=== PATIENT | male | born 1980 | race Caucasian/White ===

== ENCOUNTER 2018-08-26 18:16 | Inpatient (IN) ==
[2018-08-26] MEDS ORDERED: ONDANSETRON 4 MG/2 ML VIAL IVP ONE (18:26)
[2018-08-26] MEDS ORDERED: LORazepam 2 MG/1 ML VIAL IVP ONE (18:26)
[2018-08-26] MEDS ORDERED: Sodium Chloride 0.9% 1,000 ML PRIMARY IV ONE (18:26)
[2018-08-26] MEDS ORDERED: Sodium Chloride 0.9% 1,000 ML, Magnesium Sulfate 2gm (Premix) 50 ML with Multivitamin I... IV ONE ×5 (18:32)
--- NOTE | 2018-08-26 18:32 | PDOC ---
Alcohol/Drug Abuse HPI - General Chief Complaint: Drug / Alcohol Use &/or Abuse Stated Complaint: THINKS HE IS GOING THROUGH DTS Date Seen by Provider: 08/26/18 Time Seen by Provider: 18:24 Source: POSITIVE: Patient, Police Exam Limitations: POSITIVE: No limitations Nurse's Notes Reviewed & Considered: Yes - History of Present Illness Initial Comments: This is a well-developed, well-nourished, 38-year-old male, complaining of alcohol withdrawal. This patient is sweaty, tremulous, nauseous, with tachycardia and elevated blood pressure. His last drink was last night at approximately 11 PM. He was arrested early this morning and taken to [facility] and his had no alcohol since. Patient states he drinks every day and has done so for approximately 2 years. He states his drink preferences vodka of which he drinks a fifth a day. Presently he denies any headache, no sore throat, he does have chest pain that he calls pressure that is nonradiating with associated shortness of breath. He does have nausea and vomiting but no diarrhea, he is sweaty and no rashes. Timing: REPORTS: Gradual Duration: <24 hours Severity: Severe Context: REPORTS: Agitated, Tremors, Chronic ETOH Dependence Situational Problems: REPORTS: Legal Problems, Other (Patient presently was arrested and in [facility]) Similar Symptoms Previously: No Recent Care Received: REPORTS: Denies Currently Enrolled in Methadone Program: No Associated Symptoms: REPORTS: Chills, Sweating, Rapid Pulse, Nausea, Vomitting, Restlessness, Irritability Any Prior Injuries Related to Current Complaint?: No - Patient Home Medications Home Medications: Home Medications NK 08/26/18 - Patient Allergies Allergies/Adverse Reactions: Allergies 3 Allergy/AdvReac Type Severity Reaction Status Date / Time bismuth subsalicylate Allergy VOMITING Verified 08/26/18 18:17 [From Pepto-Bismol] Past Medical History - heen HEENT History: Denies History Cardiovascular History: Hypertension Respiratory History: Denies History Gastrointestinal History: Denies History Genitourinary History: Denies History Endocrine History: Denies History Musculoskeletal History: Denies History Prosthesis or Implant: No Neurological History: Denies History Blood Disorders: Denies History Psychiatric History: Depression History of Sexually Transmitted Diseases: No Cancer History: Denies History History of MDRO: No History of Other Communicable Diseases: No History of Exposure to Communicable Disease: No Alcohol Use: Heavy In the Past 12 Months, Have Used or Abuse Any Substance: None Previous Surgical History: Yes Type / Date of Surgery: Umbilical hernia repair Significant Family History: No pertinent family hx ROS - Limitations ROS Limitations: No Limitations Constitution: REPORTS: Chills, Diaphoresis Cardiovascular: REPORTS: Chest Pain, Heart Racing Respiratory: REPORTS: Shortness Of Breath Neurological: REPORTS: Other (Tremulousness) Gastrointestinal: REPORTS: Nausea, Vomitting Endocrine: REPORTS: Denies Symptoms Musculoskeletal: REPORTS: Denies MS Symptoms Genitourinary: REPORTS: Denies Symptoms Eyes: REPORTS: Denies Symptoms ENT: REPORTS: Denies Symptoms Skin: REPORTS: Denies Skin Symptoms Lympathic: REPORTS: Denies Lympathic Symptoms Immunologic: POSITIVE: Denies Symptoms Psychiatric: POSITIVE: Anxiety Alcohol/Drug Abuse PE - General Appearance General Appearance: POSITIVE: Alert, Severe Stress - HEENT HEENT: POSITIVE: Head Inspection Nml, Eyes Inspection Nml, Ears Inspection Nml, Nose Inspection Nml, Oral/Dental Inspect. Nml, Pharynx Inspect. Nml, PERRL, EOMI - Pupil Size Pupil Size: 6 mm: Bilateral - Neurological/Psychological Neurological: POSITIVE: Alert, Oriented X 3, Mood Appropriate, Affect Appropriate Cranial Nerves: POSITIVE: Other (Cranial nerve testing is limited because of the patient's withdrawal symptoms) Cerebellar: POSITIVE: Other (Limited cerebellar exam because the patient's withdrawal symptoms.) Peripheral Exam: POSITIVE: No Motor Deficits, No Sensory Deficits, Tremors - Neck Neck: POSITIVE: Supple, Non Tender - Respiratory Respiratory: POSITIVE: No Respiratory Distress, Breath Sounds Normal, Respiratory Distress - CVS CVS: POSITIVE: Regular Rate and Rhythm, Heart Sounds Normal - Abdomen Abdomen: Soft: (All Quadrants), Normal Bowel Sounds: (All Quadrants), Denies Tenderness: (All Quadrants), No Splenomegaly: (All Quadrants), No Hepatomegaly: (All Quadrants), No Guarding: (All Quadrants), No Rebound: (All Quadrants), No Palpable Pulse: (All Quadrants), No Palpabale Mass: (All Quadrants), No Distention: (All Quadrants), No Rigidity: (All Quadrants) - Skin Skin: POSITIVE: Normal for Race, No Rash, Warm, Diaphoresis - Extremities Extremity: Non-Tender: (All Extremities), Normal ROM: (All Extremities), Normal Inspection: (All Extremities), Pelvis Stable: (All Extremities) Alcohol/Drug Abuse Progress - Results Reviewed by me Xrays/CTs/US Reviewed by me: Yes Discussed with Radiologist: Yes Lab Results Reviewed by Me: Yes CBC and BMP: 08/26/18 18:26 08/26/18 18:26 Lab Results:: Laboratory Results 3 08/26/18 08/26/18 08/26/18 18:26 18:26 18:26 WBC 6.85 RBC 4.87 Hgb 17.3 Hct 47.2 MCV 96.9 H MCH 35.5 H MCHC 36.7 RDW Std Deviation 44.0 RDW Coeff of Nas 12.5 Plt Count 195 MPV 10.0 Immature Gran % (Auto) 0.1 Neut % (Auto) 76.7 Lymph % (Auto) 15.0 [place] % (Auto) 7.2 Eos % (Auto) 0.4 Baso % (Auto) 0.6 Immature Gran # (Auto) 0.01 Neut # (Auto) 5.25 Lymph # (Auto) 1.03 [place] # (Auto) 0.49 Eos # (Auto) 0.03 Baso # (Auto) 0.04 WBC Morphology Comment Normal morphology Plt Morphology Comment Normal morphology RBC Morph Comment Normal morphology PT 11.1 INR 1.08 D-Dimer 0.54 Sodium 139 Potassium 3.9 Chloride 100 Carbon Dioxide 22 L Anion Gap 17 BUN 2 L Creatinine 0.8 Estimated GFR > 60 BUN/Creatinine Ratio 2.50 L Glucose 130 H Calculated Osmolality 285.0 Calcium 10.5 Magnesium 1.0 L Total Bilirubin 1.6 H AST 226 H ALT 145 H Alkaline Phosphatase 117 CK-MB (CK-2) Troponin I C-Reactive Protein 0.5 Total Protein 8.3 H Albumin 4.9 H Globulin 3.4 Albumin/Globulin Ratio 1.40 Serum Alcohol < 10 3 08/26/18 18:26 WBC RBC Hgb Hct MCV MCH MCHC RDW Std Deviation RDW Coeff of Nas Plt Count MPV Immature Gran % (Auto) Neut % (Auto) Lymph % (Auto) [place] % (Auto) Eos % (Auto) Baso % (Auto) Immature Gran # (Auto) Neut # (Auto) Lymph # (Auto) [place] # (Auto) Eos # (Auto) Baso # (Auto) WBC Morphology Comment Plt Morphology Comment RBC Morph Comment PT INR D-Dimer Sodium Potassium Chloride Carbon Dioxide Anion Gap BUN Creatinine Estimated GFR BUN/Creatinine Ratio Glucose Calculated Osmolality Calcium Magnesium Total Bilirubin AST ALT Alkaline Phosphatase CK-MB (CK-2) 1.21 Troponin I < 0.012 C-Reactive Protein Total Protein Albumin Globulin Albumin/Globulin Ratio Serum Alcohol EKG Interpreted/Reviewed By Me:: Yes (sinus tachycardia, 123 beats a minute, no ST elevation.) EKG Interpretation:: POSITIVE: Abnormal EKG - Patient's Progress Pain Medication Addressed: POSITIVE: Not Applicable Re-Examine Time: 19:28 Status: POSITIVE: Improved [facility] / ED Course: Patient was evaluated, an IV started, blood drawn and sent to the lab for studies, chest x-ray and EKG were obtained. Findings: CBC is unremarkable. CMP shows a CO2 of 22, BUN of 2, glucose of 130 , total bilirubin 1.6, AST of 226, ALT of 145, total protein of 8.3, albumin of 4.9. Coags show PT of 11.1, INR 1.08. D-dimer is normal at 0.54, CK-MB normal at 1.21, troponin normal less than 0.012. CRP is normal at 0.5. Magnesium is quite low at 1.0. Blood alcohol is less than 10. EKG, per my interpretation, shows sinus tachycardia with a rate of 126 beats a minute. Chest x-ray shows no acute cardiopulmonary decompensation. Assessment: #1 alcohol withdrawal. #2 hypomagnesemia. Plan: Patient being admitted for alcohol withdrawal. Here in the emergency department he received 2 mg of IV Ativan, Zofran, and normal saline. - Consult Consult (If Yes, Name of Consulting MD & Time Called): Yes (Dr. Sánchez, 1930) Consulting MD will see pt:: [place] [facility] [place] Counseled: POSITIVE: Patient, RE: Lab Results, RE: Radiology Results, RE: DX, RE : Need for F/U - Treatment Treatment: POSITIVE: IV Fluids, Ativan, Banana Bag Voluntarily Accepts Detox: Yes Patient Care Time - Estimated PCT Patient Care Time (In Minutes): 45 Vital Signs - VS Reviewed Vital Signs Reviewed: Yes Discharge Clinical Impression: Alcohol abuse, Alcohol withdrawal syndrome Discharge Disposition: Admit to Inpatient Condition: Stable Patient Instructions Given at Discharge: Alcohol Intoxication (ED), Alcohol Withdrawal (ED) Follow Up With: NONE,NONE [Primary Care Provider] - Date Decision to Admit to Inpatient: 08/26/18 Time Decision to Admit to Inpatient: 19:30
[2018-08-26 18:44] LABS: BASOPHILS # (AUTO) 0.04 10*3/UL; BASOPHILS % (AUTO) 0.6 % (0-1); EOSINOPHILS # (AUTO) 0.03 10*3/UL; EOSINOPHILS % (AUTO) 0.4 % (0-8); Hematocrit [HCT] 47.2 % (42.0-52.0); Hemoglobin [HGB] 17.3 g/dL (14.0-18.0); LYMPHOCYTES # (AUTO) 1.03 10*3/uL; MEAN CORPUSCULAR HEMOGLOBIN 35.5 PG (27-31); MEAN CORPUSCULAR HGB CONC 36.7 g/dL (33-37); MEAN CORPUSCULAR VOLUME 96.9 FL (80-90); MONOCYTES # (AUTO) 0.49 10*3/UL (0.3-0.8); MONOCYTES % (AUTO) 7.2 % (5-15); NEUTROPHILS # (AUTO) 5.25 10*3/UL; NEUTROPHILS % (AUTO) 76.7 % (50-80); RED BLOOD COUNT 4.87 10^6/uL (4.70-6.10)
--- NOTE | 2018-08-26 18:45 | EKG ---
[address] [address] Measurements Intervals [place] Rate: 126 P: 60 [place]: 115 QRS: 63 QRSD: 92 T: 47 QT: 315 QTc: 390 Interpretive Statements SINUS TACHYCARDIA WITH SHORT [place] INTERVAL NONSPECIFIC T-WAVE ABNORMALITY ABNORMAL RHYTHM ECG No previous ECG available for comparison Electronically Signed On 08-27-18 08:28:48 MDT by Solitario Simpson MD [email or web address]
[2018-08-26 18:54] LABS: PLATELET MORPHOLOGY COMMENT NORMAL MORPHOLOGY (NORM); RBC MORPHOLOGY COMMENT NORMAL MORPHOLOGY (NORM); WBC MORPHOLOGY COMMENT NORMAL MORPHOLOGY (NORM)
[2018-08-26 18:56] LABS: SERUM ALBUMIN 4.9 g/dL (3.5-4.8)
[2018-08-26 18:58] LABS: BLOOD UREA NITROGEN 2 mg/dL (7-22)
[2018-08-26] MEDS ORDERED: ONDANSETRON 4 MG/2 ML VIAL IVP PRN ×2 (19:49→20:43)
[2018-08-26] MEDS ORDERED: MAGNESIUM 400 MG/5 ML - 30 ML (MILK OF MAGNESIA) PO PRN ×2 (19:49→20:43)
[2018-08-26] MEDS ORDERED: Loperamide Tab 2 MG TABLET PO PRN ×2 (19:49→20:43)
[2018-08-26] MEDS ORDERED: LIDOCAINE W/ SODIUM BICARB 0.5 ML SYR SUBD PRN ×2 (19:49→20:43)
[2018-08-26] MEDS ORDERED: Diazepam 10 mg Tab (ETOH withdrawal) PO PRN ×2 (19:49→20:43)
[2018-08-26] MEDS ORDERED: Diazepam Inj (ETOH withdrawal)10 MG/2 ML CARPUJECT IVP PRN ×2 (19:49→20:43)
[2018-08-26] MEDS ORDERED: ACETAMINOPHEN 500 MG TABLET PO PRN ×2 (19:49→20:43)
[2018-08-26] MEDS ORDERED: MAG HYDROX/AL HYDROX/SIMETH 30 ML SUSP PO PRN ×2 (19:49→20:43)
[2018-08-26] MEDS ORDERED: NICOTINE 21 MG /DAY PATCH TRANSDERM PRN ×2 (19:49→20:43)
--- NOTE | 2018-08-26 19:50 | DI ---
EXAM: XR Chest, 1 View CLINICAL HISTORY: ITS.REASON withdrawl etoh Physician Notes: Tech Comments: TECHNIQUE: Frontal view of the chest. COMPARISON: No relevant prior studies available. FINDINGS: Lordotic positioning and somewhat low lung volumes limits assessment. Lungs: Unremarkable. No consolidation. Pleural space: Unremarkable. No pneumothorax. Heart: Unremarkable. No cardiomegaly. Mediastinum: Unremarkable. Bones/joints: Unremarkable. IMPRESSION: No gross evidence for acute cardiopulmonary disease.
[2018-08-26] MEDS ORDERED: ChlordiazePOXIDE Cap 25 MG CAPSULE PO SCH (20:00)
[2018-08-26] MEDS ORDERED: Magnesium Sulfate 4gm (Premix) 4 GM/100 ML BAG IV ONE (20:43)
--- NOTE | 2018-08-26 21:01 | PDOC ---
HPI - History of Present Illness Date of Service: 08/26/18 Time of Service: 20:56 Chief Complaint: Detoxing from alcohol History of Present Illness: This is a 38-year-old male who has a long history of drinking a fifth of vodka daily. 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 On a probation check, they did a breathalyzer any blue "hot", and was placed in alf on a probation violation. He started having symptoms of alcohol detox and was brought into the emergency room for evaluation and here he was tachycardic, had tremors, and some slight chest discomfort. His EKG showed sinus tachycardia and his troponins were negative. He states that he is done some sort of class for alcohol abuse but not an actual alcohol rehabilitation program. He's had one prior DUI. He states he has a family history of alcoholism. He states he really does want to try and clean up and stop alcohol use and abuse, and stated to me that he told his principal gifts officer initially but that was his intention. He has not had a substance abuse intake exam to this point. He denies other drug use and he denies smoking. Ativan did help until better in the emergency room. We have admitted him under the [facility] protocol. Past Medical History Medical History: 1. Alcohol abuse Surgical History: 1. Umbilical hernia during his days in high school Pertinent Family History: Significant for alcoholism Past Social History: Does not smoke. Has 2 children, age 7 and 9. . 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 Drinks heavy amounts of alcohol. Tobacco Use: Never Smoker In the Past 12 Months, Have Used or Abuse Any of the Following Substance: None Alcohol Use: Heavy Medication / Allergies Home Medications: Home Medications 3 Medication Instructions Recorded Confirmed Type NK 08/26/18 08/26/18 History Allergies/Adverse Reactions: Allergies 3 Allergy/AdvReac Type Severity Reaction Status Date / Time bismuth subsalicylate Allergy VOMITING Verified 08/26/18 18:17 [From Pepto-Bismol] Review of Systems - Review of Systems All Systems: Reviewed & No Additional Complaints Except as Stated Exam - Vitals Vital Signs: Vital Signs Temperature 97.6 F Temperature Source Temporal Artery Scan Pulse Rate [Pulse Oximeter] 140 Pulse Rate 140 Respiratory Rate 20 Blood Pressure [Left Arm] 165/127 Blood Pressure 165/127 Pulse Ox 95 Oxygen Delivery Method Room Air Height 6 ft 2 in Weight 250 lb 14.4 oz - General General Appearance: No Acute Distress, Cooperative - Head Head Exam: Normal Inspection, Normocephalic, Atraumatic - Eye Eye Exam: POSITIVE: No Scleral Icterus - ENT ENT Exam: POSITIVE: Mucous Membranes Dry - Neck Neck Exam: Normal Inspection, No Tenderness, No Lymphadenopathy, No Thyromegaly , JVP is not Raised - Respiratory Respiratory Exam: POSITIVE: Clear to Auscultation - Bilaterally, Breathing Non Labored, Normal to Percussion and Palpation - Cardiovascular Cardiovascular Exam: POSITIVE: No Murmur, No Clicks, No Gallops, No Rubs, Tachycardia, No JVD - GI/Abdominal GI/Abdominal Exam: POSITIVE: Normal Bowel Sounds, Non Tender, Non Distended, Soft - Rectal Rectal Exam: POSITIVE: Deferred - External Exam: POSITIVE: Deferred Exam: POSITIVE: Deferred - Extremities Extremities Exam: POSITIVE: No Clubbing Present, No Edema Present, No Cyanosis Present - Back Back Exam: POSITIVE: No CVA Tenderness - Neurological Neurological Exam: POSITIVE: Alert, Oriented x 3, No Facial Droop, Speech Intact / Clear, Moves All Extremities Equally Additional Neurological Exam Details: Bilateral tremors and tremulousness consistent with alcohol withdrawal - Psychiatric Psychiatric Exam: POSITIVE: Anxious Additional Psychiatric Exam Details: The patient denies any suicidal ideation to me. He denies any homicidal ideation. Results - Labs CBC and BMP: 08/26/18 18:26 08/26/18 18:26 Additional Lab Results: Laboratory Results 08/26/18 08/26/18 08/26/18 Range/Units 18:26 18:26 18:26 WBC 6.85 (4.8-10.8) 10^3/uL RBC 4.87 (4.70-6.10) 10^6/uL Hgb 17.3 (14.0-18.0) g/dL Hct 47.2 (42.0-52.0) % MCV 96.9 H (80-90) FL MCH 35.5 H (27-31) PG MCHC 36.7 (33-37) g/dL RDW Std Deviation 44.0 (39-50) fL RDW Coeff of Nas 12.5 (11.5-14.5) % Plt Count 195 (140-350) 10*3/uL MPV 10.0 (7.4-12.2) FL Immature Gran % (Auto) 0.1 (0-5) % Neut % (Auto) 76.7 (50-80) % Lymph % (Auto) 15.0 (10-50) % [place] % (Auto) 7.2 (5-15) % Eos % (Auto) 0.4 (0-8) % Baso % (Auto) 0.6 (0-1) % Immature Gran # (Auto) 0.01 10*3/UL Neut # (Auto) 5.25 10*3/UL Lymph # (Auto) 1.03 10*3/uL [place] # (Auto) 0.49 (0.3-0.8) 10*3/UL Eos # (Auto) 0.03 10*3/UL Baso # (Auto) 0.04 10*3/UL WBC Morphology Comment Normal morphology (NORM) Plt Morphology Comment Normal morphology (NORM) RBC Morph Comment Normal morphology (NORM) PT 11.1 (9.7-11.4) secs INR 1.08 (0.00-5.90) N/A D-Dimer 0.54 (0.00-0.59) mg/L Sodium 139 (135-145) meq/L Potassium 3.9 (3.8-5.2) meq/L Chloride 100 (98-112) meq/L Carbon Dioxide 22 L (23-33) meq/L Anion Gap 17 (5-20) BUN 2 L (7-22) mg/dL Creatinine 0.8 (0.70-1.50) mg/dL Estimated GFR > 60 (>60 ml/min/1.73m(2)) BUN/Creatinine Ratio 2.50 L (6-20) Glucose 130 H (78-110) mg/dL Calculated Osmolality 285.0 (267-292) mOsm/kg Calcium 10.5 (8.7-10.7) mg/dL Magnesium 1.0 L (1.6-2.4) mg/dL Total Bilirubin 1.6 H (0.3-1.2) mg/dL AST 226 H (21-57) IU/L ALT 145 H (21-72) IU/L Alkaline Phosphatase 117 (38-126) IU/L CK-MB (CK-2) (0.00-5.00) NG/ML Troponin I (< 0.040) ng/mL C-Reactive Protein 0.5 (0.0-0.9) mg/dL Total Protein 8.3 H (6.1-8.0) g/dL Albumin 4.9 H (3.5-4.8) g/dL Globulin 3.4 (2.50-4.10) g/dL Albumin/Globulin Ratio 1.40 (1.3-2.0) mg/g TSH (0.2700-4.2000) uIU/mL Serum Alcohol < 10 (0-10) mg/dL 08/26/18 08/26/18 Range/Units 18:26 18:26 WBC (4.8-10.8) 10^3/uL RBC (4.70-6.10) 10^6/uL Hgb (14.0-18.0) g/dL Hct (42.0-52.0) % MCV (80-90) FL MCH (27-31) PG MCHC (33-37) g/dL RDW Std Deviation (39-50) fL RDW Coeff of Nas (11.5-14.5) % Plt Count (140-350) 10*3/uL MPV (7.4-12.2) FL Immature Gran % (Auto) (0-5) % Neut % (Auto) (50-80) % Lymph % (Auto) (10-50) % [place] % (Auto) (5-15) % Eos % (Auto) (0-8) % Baso % (Auto) (0-1) % Immature Gran # (Auto) 10*3/UL Neut # (Auto) 10*3/UL Lymph # (Auto) 10*3/uL [place] # (Auto) (0.3-0.8) 10*3/UL Eos # (Auto) 10*3/UL Baso # (Auto) 10*3/UL WBC Morphology Comment (NORM) Plt Morphology Comment (NORM) RBC Morph Comment (NORM) PT (9.7-11.4) secs INR (0.00-5.90) N/A D-Dimer (0.00-0.59) mg/L Sodium (135-145) meq/L Potassium (3.8-5.2) meq/L Chloride (98-112) meq/L Carbon Dioxide (23-33) meq/L Anion Gap (5-20) BUN (7-22) mg/dL Creatinine (0.70-1.50) mg/dL Estimated GFR (>60 ml/min/1.73m(2)) BUN/Creatinine Ratio (6-20) Glucose (78-110) mg/dL Calculated Osmolality (267-292) mOsm/kg Calcium (8.7-10.7) mg/dL Magnesium (1.6-2.4) mg/dL Total Bilirubin (0.3-1.2) mg/dL AST (21-57) IU/L ALT (21-72) IU/L Alkaline Phosphatase (38-126) IU/L CK-MB (CK-2) 1.21 (0.00-5.00) NG/ML Troponin I < 0.012 (< 0.040) ng/mL C-Reactive Protein (0.0-0.9) mg/dL Total Protein (6.1-8.0) g/dL Albumin (3.5-4.8) g/dL Globulin (2.50-4.10) g/dL Albumin/Globulin Ratio (1.3-2.0) mg/g TSH 2.15 (0.2700-4.2000) uIU/mL Serum Alcohol (0-10) mg/dL - EKG Data -: EKG Interpreted by Me Rate: Tachycardia EKG Shows Normal: Sinus Rhythm - Imaging Status: Image Reviewed by Me (Chest x-ray is negative for any acute cardiac pulmonary disease process.) Assessment and Plan - Patient Problems (1) Alcohol abuse Current Visit: Yes Status: Acute Code(s): F10.10 - Alcohol abuse, uncomplicated (2) Alcohol withdrawal syndrome Current Visit: Yes Status: Acute Code(s): F10.239 - Alcohol dependence with withdrawal, unspecified - Assessment / Plan Additional Assessment/Plan Details: Admit the patient under [facility] protocol. We'll get solutions for life to see the patient when he is better from his withdrawal. He is Valium and Librium primarily, if we need to, may need to transfer to the ICU for Precedex drip but will watch progress of the patient. Replace magnesium. Run fluids with potassium chloride. Thiamine will be given. Multivitamin daily. Ultimately, I spoke to the patient and suggested Alcoholics Anonymous. I think that would be his best bet to quitting overall. Check labs in a.m.
[2018-08-26] MEDS ORDERED: DIAZEPAM 10 MG/2 ML (5 MG/1 ML) CARPUJECT ONE (21:08)
[2018-08-26] MEDS ORDERED: LORazepam 1 mg tab (ETOH withdrawal) PO PRN (21:14)
[2018-08-26] MEDS ORDERED: CloNIDine Tab 0.1 MG TABLET PO PRN (21:16)
[2018-08-26 21:22] LABS: AMPHETAMINE SCREEN NEGATIVE (NEG); CANNABINOID SCREEN,URINE NEGATIVE (NEG); COCAINE SCREEN NEGATIVE (NEG); METHADONE URINE SCREEN NEGATIVE (NEG); METHAMPHETAMINES SCREEN,URINE NEGATIVE (NEG); OPIATE SCREEN,URINE NEGATIVE (NEG); URINE SAMPLE TYPE VOIDED SPECIMEN; URINE SPECIFIC GRAVITY - MAN 1.005
[2018-08-26] MEDS ORDERED: DIAZEPAM 10 MG/2 ML (5 MG/1 ML) CARPUJECT IVP ONE (21:22)
[2018-08-26] MEDS: ChlordiazePOXIDE Cap 25 MG CAPSULE PO SCH (21:26)
[2018-08-26] MEDS: LORazepam Inj(ETOH withdrawal) 2 MG/ML VIAL IVP PRN (23:39)
[2018-08-26] MEDS ORDERED: Influenza 18-19 Vaccine (6mo+) 60 MCG/0.5 ML SYRINGE IM ONE (23:56)
[2018-08-27] MEDS: LORazepam Inj(ETOH withdrawal) 2 MG/ML VIAL IVP PRN ×7 (01:58→23:46)
[2018-08-27] MEDS ORDERED: ChlordiazePOXIDE Cap 25 MG CAPSULE PO SCH (04:00)
[2018-08-27 05:05] LABS: SERUM ALBUMIN 4.3 g/dL (3.5-4.8)
[2018-08-27 05:10] LABS: BLOOD UREA NITROGEN < 2 mg/dL (7-22)
[2018-08-27] MEDS: ChlordiazePOXIDE Cap 25 MG CAPSULE PO SCH ×3 (05:19→20:54)
[2018-08-27] MEDS ORDERED: LORazepam 2 MG/1 ML VIAL IVP ONE ×2 (05:27→06:53)
[2018-08-27] MEDS ORDERED: LORazepam 2 MG/1 ML VIAL IVP SCH (05:30)
[2018-08-27] MEDS ORDERED: MAGNESIUM 400 MG/5 ML - 30 ML (MILK OF MAGNESIA) PO PRN (05:41)
[2018-08-27] MEDS ORDERED: NICOTINE 21 MG /DAY PATCH TRANSDERM PRN (05:41)
[2018-08-27] MEDS ORDERED: ONDANSETRON 4 MG/2 ML VIAL IVP PRN (05:41)
[2018-08-27] MEDS ORDERED: MAG HYDROX/AL HYDROX/SIMETH 30 ML SUSP PO PRN (05:41)
[2018-08-27] MEDS ORDERED: LIDOCAINE W/ SODIUM BICARB 0.5 ML SYR SUBD PRN (05:41)
[2018-08-27] MEDS ORDERED: ACETAMINOPHEN 500 MG TABLET PO PRN (05:41)
[2018-08-27] MEDS: Dexmedetomidine/NS 400 MCG/100 ML INFUS..BTL IV SCH ×5 (06:01→20:38)
[2018-08-27] MEDS ORDERED: NICOTINE TRANSDERM SCH (09:00)
[2018-08-27] MEDS ORDERED: THIAMINE 100 MG/1 ML - 2 ML IM SCH (09:00)
[2018-08-27] MEDS ORDERED: PANTOPRAZOLE IV 40 MG VIAL IVP SCH ×2 (09:00)
[2018-08-27] MEDS ORDERED: NICOTINE PATCH REMOVAL TRANSDERM SCH (09:00)
[2018-08-27] MEDS ORDERED: Influenza 18-19 Vaccine (6mo+) 60 MCG/0.5 ML SYRINGE IM ONE (11:55)
[2018-08-27] MEDS: LORazepam 2 MG/1 ML VIAL IVP SCH ×6 (12:06→23:56)
--- NOTE | 2018-08-27 12:22 | PDOC(PROG) ---
Date of Service: 08/27/18 Time of Service: 12:18 Interval History: Patient resting on Precedex drip, when necessary Ativan for CIWA protocol as well as Librium and scheduled Ativan at this time. He was hallucinating this morning and was very agitated per RN. Responded well to Precedex initiation. Objective : Data - Labs CBC and BMP: 08/26/18 18:26 08/27/18 03:51 Additional Lab Results: 08/27/18 03:51 Magnesium 2.6 H Total Bilirubin 2.0 H AST 168 H ALT 116 H Objective : Exam - General General Appearance: No Acute Distress, Cooperative Additional General Exam Details: Vital Signs - Last Taken Temperature 99.4 F 08/27/18 12:12 Pulse Rate 88 08/27/18 12:12 Respiratory Rate 26 H 08/27/18 12:12 Blood Pressure 121/94 08/27/18 12:12 Pulse Ox 94 08/27/18 09:00 - Eye Eye Exam: No Scleral Icterus - ENT ENT Exam: Mucous Membranes Moist - Respiratory Respiratory Exam: Clear to Auscultation - Bilaterally, Breathing Non Labored - Cardiovascular Cardiovascular Exam: RRR, No Murmur, No Clicks, No Gallops, No Rubs, No JVD - GI/Abdominal GI/Abdominal Exam: Normal Bowel Sounds, Non Tender, Non Distended, Soft - Extremities Extremities Exam: No Clubbing Present, No Edema Present, No Cyanosis Present Assessment and Plan - Patient Problems (1) Delirium tremens Current Visit: Yes Status: Acute Code(s): F10.231 - Alcohol dependence with withdrawal delirium (2) Alcohol withdrawal syndrome Current Visit: Yes Status: Acute Code(s): F10.239 - Alcohol dependence with withdrawal, unspecified (3) Alcohol abuse Current Visit: Yes Status: Acute Code(s): F10.10 - Alcohol abuse, uncomplicated - Assessment / Plan Additional Assessment/Plan Details: continue Precedex drip for now and scheduled ativan, CIWA protocol labs in AM potassium change thiamine to IV
[2018-08-27] MEDS: CloNIDine Tab 0.1 MG TABLET PO PRN ×2 (14:45→23:55)
[2018-08-27] MEDS: NICOTINE 21 MG /DAY PATCH TRANSDERM SCH (20:53)
[2018-08-27] MEDS: NICOTINE TRANSDERM SCH (21:23)
[2018-08-28] MEDS: Dexmedetomidine/NS 400 MCG/100 ML INFUS..BTL IV SCH ×6 (00:06→20:29)
[2018-08-28] MEDS: LORazepam 2 MG/1 ML VIAL IVP SCH ×6 (02:11→20:17)
[2018-08-28] MEDS: ChlordiazePOXIDE Cap 25 MG CAPSULE PO SCH ×3 (05:09→20:17)
[2018-08-28] MEDS ORDERED: PANTOPRAZOLE IV 40 MG VIAL IVP SCH (07:00)
[2018-08-28] MEDS: LORazepam Inj(ETOH withdrawal) 2 MG/ML VIAL IVP PRN ×4 (07:05→23:12)
[2018-08-28] MEDS: PANTOPRAZOLE IV 40 MG VIAL IVP SCH (07:05)
[2018-08-28] MEDS: THIAMINE 100 MG/1 ML - 2 ML IV SCH (08:51)
[2018-08-28 11:43] LABS: BLOOD UREA NITROGEN 6 mg/dL (7-22); BUN/CREATININE RATIO 8.57 (6-20); SERUM ALBUMIN 3.8 g/dL (3.5-4.8)
--- NOTE | 2018-08-28 14:42 | PDOC(PROG) ---
Date of Service: 08/28/18 Time of Service: 14:40 Interval History: No chest pain, shortness breath, nausea or vomiting. He was hallucinating and thought that he was at his house. He still scoring somewhat high on the CIWA protocol despite Precedex and scheduled Ativan. Objective : Data - Labs CBC and BMP: 08/26/18 18:26 08/28/18 11:17 Objective : Exam - General General Appearance: No Acute Distress, Cooperative Additional General Exam Details: Vital Signs - Last Taken Temperature 98.7 F 08/28/18 13:00 Pulse Rate 82 08/28/18 13:00 Respiratory Rate 22 08/28/18 13:00 Blood Pressure 158/111 08/28/18 13:00 Pulse Ox 93 08/28/18 13:00 - Head Head Exam: Normal Inspection, Normocephalic, Atraumatic - Eye Eye Exam: No Scleral Icterus - ENT ENT Exam: Mucous Membranes Moist - Respiratory Respiratory Exam: Clear to Auscultation - Bilaterally, Breathing Non Labored - Cardiovascular Cardiovascular Exam: RRR, No Murmur, No Clicks, No Gallops, No Rubs, No JVD - GI/Abdominal GI/Abdominal Exam: Normal Bowel Sounds, Non Tender, Non Distended, Soft - Extremities Extremities Exam: No Clubbing Present, No Edema Present, No Cyanosis Present - Neurological Neurological Exam: Alert, No Facial Droop, Speech Intact / Clear, Moves All Extremities Equally, Altered (Confused about his situation, has hallucinations.) Assessment and Plan - Patient Problems (1) Delirium tremens Current Visit: Yes Status: Acute Code(s): F10.231 - Alcohol dependence with withdrawal delirium (2) Alcohol withdrawal syndrome Current Visit: Yes Status: Acute Code(s): F10.239 - Alcohol dependence with withdrawal, unspecified (3) Alcohol abuse Current Visit: Yes Status: Acute Code(s): F10.10 - Alcohol abuse, uncomplicated - Assessment / Plan Additional Assessment/Plan Details: Continue Precedex drip and Ativan on CIWA scale as well as scheduled Ativan. We'll advance to clear liquids when he is alert. Check labs in a.m. and replace electrolytes as necessary.
[2018-08-28] MEDS: CloNIDine Tab 0.1 MG TABLET PO PRN (20:16)
[2018-08-28] MEDS: NICOTINE 21 MG /DAY PATCH TRANSDERM SCH (20:17)
[2018-08-28] MEDS: NICOTINE TRANSDERM SCH (20:33)
[2018-08-29] MEDS: Dexmedetomidine/NS 400 MCG/100 ML INFUS..BTL IV SCH ×6 (00:16→21:08)
[2018-08-29] MEDS: LORazepam 2 MG/1 ML VIAL IVP SCH ×4 (03:46→21:09)
[2018-08-29] MEDS: ChlordiazePOXIDE Cap 25 MG CAPSULE PO SCH ×3 (04:13→21:09)
[2018-08-29 05:19] LABS: BLOOD UREA NITROGEN 5 mg/dL (7-22); SERUM ALBUMIN 3.8 g/dL (3.5-4.8)
[2018-08-29] MEDS: PANTOPRAZOLE IV 40 MG VIAL IVP SCH (06:43)
[2018-08-29] MEDS: CloNIDine Tab 0.1 MG TABLET PO PRN (06:56)
[2018-08-29] MEDS ORDERED: Multivitamin Tab 1 TAB PO SCH ×2 (09:00)
[2018-08-29] MEDS: THIAMINE 100 MG/1 ML - 2 ML IV SCH (09:11)
[2018-08-29] MEDS: Multivitamin Tab 1 TAB PO SCH (09:11)
[2018-08-29] MEDS ORDERED: Magnesium Sulfate 4gm (Premix) 4 GM/100 ML BAG IV ONE (10:15)
[2018-08-29] MEDS ORDERED: INDOMETHACIN 25 MG CAPSULE PO ONE (12:02)
--- NOTE | 2018-08-29 12:05 | PDOC(PROG) ---
Date of Service: 08/29/18 Time of Service: 12:01 Interval History: No complains of chest pain, shortness breath, nausea or vomiting. Has right great toe pain. His physical exam is consistent with gouty arthropathy. He's never had that before. He really would like to go straight from here and to rehabilitation if possible and we will try to have [facility] see him. Objective : Data - Labs CBC and BMP: 08/26/18 18:26 08/29/18 04:18 Additional Lab Results: 08/29/18 04:18 Calcium 9.0 Magnesium 1.5 L Total Bilirubin 1.8 H AST 94 H ALT 83 H Alkaline Phosphatase 99 Total Protein 7.1 Albumin 3.8 Globulin 3.3 Objective : Exam - General General Appearance: No Acute Distress, Cooperative Additional General Exam Details: Vital Signs - Last Taken Temperature 97.5 F 08/29/18 11:00 Pulse Rate 79 08/29/18 11:00 Respiratory Rate 23 08/29/18 11:00 Blood Pressure 145/111 08/29/18 11:00 Pulse Ox 94 08/29/18 11:00 - Eye Eye Exam: No Scleral Icterus - ENT ENT Exam: Mucous Membranes Moist - Respiratory Respiratory Exam: Clear to Auscultation - Bilaterally, Breathing Non Labored - Cardiovascular Cardiovascular Exam: RRR, No Murmur, No Clicks, No Gallops, No Rubs, No JVD - GI/Abdominal GI/Abdominal Exam: Normal Bowel Sounds, Non Tender, Non Distended, Soft - Extremities Extremities Exam: No Clubbing Present, No Edema Present, No Cyanosis Present, Joint Swelling (Right great toe was swollen, red, tender to palpation, consistent with gouty arthropathy.) - Neurological Neurological Exam: Alert, Oriented x 3, No Facial Droop, Speech Intact / Clear, Moves All Extremities Equally Additional Neurological Exam Details: Tremors present, but less so. More oriented today. Assessment and Plan - Patient Problems (1) Delirium tremens Current Visit: Yes Status: Acute Code(s): F10.231 - Alcohol dependence with withdrawal delirium (2) Acute gouty arthropathy Current Visit: Yes Status: Acute Code(s): M10.9 - Gout, unspecified (3) Alcohol withdrawal syndrome Current Visit: Yes Status: Acute Code(s): F10.239 - Alcohol dependence with withdrawal, unspecified (4) Alcohol abuse Current Visit: Yes Status: Acute Code(s): F10.10 - Alcohol abuse, uncomplicated - Assessment / Plan Additional Assessment/Plan Details: Further gouty arthropathy, start indomethacin, check uric acid level. After this acute flare resolves, consider allopurinol to try and prevent further gouty attacks. Ultimately quitting alcohol will really help this patient avoid further gouty arthropathy flares. Continue Precedex and CIWA as well as scheduled Ativan. Hopefully we can come down on the Precedex somewhat today, but I think a slow taper off of it would be best. Hopefully by tomorrow we can get him on just Ativan and Librium. [facility] to see patient eventually to hopefully help patient find rehabilitation options. Replace magnesium Check labs in a.m. LFTs really do reflect a mild acute alcoholic hepatitis which is improving. He is not really a candidate for steroids
[2018-08-29] MEDS: Sodium Chloride 0.9% 500 ML PRIMARY IV PRN (12:34)
[2018-08-29] MEDS: NICOTINE 21 MG /DAY PATCH TRANSDERM SCH (21:09)
[2018-08-29] MEDS: INDOMETHACIN 25 MG CAPSULE PO PRN (21:09)
[2018-08-29] MEDS: CloNIDine Tab 0.1 MG TABLET PO SCH (21:12)
[2018-08-29] MEDS: NICOTINE TRANSDERM SCH (21:12)
[2018-08-30] MEDS: LORazepam Inj(ETOH withdrawal) 2 MG/ML VIAL IVP PRN ×7 (02:00→21:37)
[2018-08-30] MEDS: LORazepam 2 MG/1 ML VIAL IVP SCH ×2 (03:46→09:46)
[2018-08-30] MEDS: Dexmedetomidine/NS 400 MCG/100 ML INFUS..BTL IV SCH (03:48)
[2018-08-30] MEDS: Sodium Chloride 0.9% 500 ML PRIMARY IV PRN (03:48)
[2018-08-30 04:39] LABS: BLOOD UREA NITROGEN 3 mg/dL (7-22); SERUM ALBUMIN 3.5 g/dL (3.5-4.8)
[2018-08-30] MEDS: ChlordiazePOXIDE Cap 25 MG CAPSULE PO SCH ×4 (05:16→21:22)
[2018-08-30] MEDS: PANTOPRAZOLE IV 40 MG VIAL IVP SCH (07:24)
[2018-08-30] MEDS: INDOMETHACIN 25 MG CAPSULE PO PRN (07:41)
[2018-08-30] MEDS: THIAMINE 100 MG/1 ML - 2 ML IV SCH (09:45)
[2018-08-30] MEDS: Multivitamin Tab 1 TAB PO SCH (09:47)
[2018-08-30] MEDS: NICOTINE 21 MG /DAY PATCH TRANSDERM SCH ×2 (09:48→21:37)
[2018-08-30] MEDS ORDERED: Magnesium Sulfate 2gm (Premix) 2 GM/50 ML BAG IV ONE (09:51)
[2018-08-30] MEDS: CloNIDine Tab 0.1 MG TABLET PO SCH (10:16)
[2018-08-30] MEDS ORDERED: INDOMETHACIN 25 MG CAPSULE PO PRN (12:46)
[2018-08-30] MEDS ORDERED: ACETAMINOPHEN 500 MG TABLET PO PRN (12:46)
[2018-08-30] MEDS ORDERED: ONDANSETRON 4 MG/2 ML VIAL IVP PRN (12:46)
[2018-08-30] MEDS ORDERED: LIDOCAINE W/ SODIUM BICARB 0.5 ML SYR SUBD PRN (12:46)
--- NOTE | 2018-08-30 13:17 | PDOC(PROG) ---
Date of Service: 08/30/18 Time of Service: 13:11 Interval History: States that his right great toe does feel a little bit better today. States overall he swelling better but does have some mild nausea, abdominal discomfort , no chest pains. Shower and eating. Having diarrhea Objective : Data - Labs CBC and BMP: 08/26/18 18:26 08/30/18 04:15 Additional Lab Results: 08/28/18 08/30/18 04:30 04:15 Calcium 8.9 Magnesium 1.6 Total Bilirubin 1.2 AST 95 H ALT 64 Alkaline Phosphatase 83 Total Protein 6.9 Albumin 3.5 Globulin 3.3 Albumin/Globulin Ratio 1.00 L Vitamin B12 819 Serum Folate 11.4 08/29/18 04:18 Uric Acid 9.3 H Objective : Exam - General General Appearance: No Acute Distress, Cooperative Additional General Exam Details: Vital Signs - Last Taken Temperature 99.2 F 08/30/18 13:03 Pulse Rate 135 H 08/30/18 13:03 Respiratory Rate 22 08/30/18 13:03 Blood Pressure 105/63 08/30/18 13:03 Pulse Ox 92 08/30/18 13:03 - Eye Eye Exam: No Scleral Icterus - ENT ENT Exam: Mucous Membranes Moist - Respiratory Respiratory Exam: Clear to Auscultation - Bilaterally, Breathing Non Labored - Cardiovascular Cardiovascular Exam: RRR, No Murmur, No Clicks, No Gallops, No Rubs, No JVD - GI/Abdominal GI/Abdominal Exam: Normal Bowel Sounds, Non Tender, Non Distended, Soft - Extremities Extremities Exam: No Clubbing Present, No Edema Present, No Cyanosis Present, Joint Swelling (Right great toe, less tender today. Erythema has significantly reduced.) - Neurological Neurological Exam: Alert, Oriented x 3, No Facial Droop, Speech Intact / Clear, Moves All Extremities Equally Additional Neurological Exam Details: Mild withdrawal tremors but significantly improved. Assessment and Plan - Patient Problems (1) Delirium tremens Current Visit: Yes Status: Acute Code(s): F10.231 - Alcohol dependence with withdrawal delirium (2) Acute gouty arthropathy Current Visit: Yes Status: Acute Code(s): M10.9 - Gout, unspecified (3) Alcohol withdrawal syndrome Current Visit: Yes Status: Acute Code(s): F10.239 - Alcohol dependence with withdrawal, unspecified (4) Alcohol abuse Current Visit: Yes Status: Acute Code(s): F10.10 - Alcohol abuse, uncomplicated (5) Depression Current Visit: Yes Status: Acute Code(s): F32.9 - Major depressive disorder , single episode, unspecified Qualifiers: Depression Type: unspecified Qualified Code(s): F32.9 - Major depressive disorder, single episode, unspecified - Assessment / Plan Additional Assessment/Plan Details: The patient stated to RN that he has been on Wellbutrin which he did not know when he was being admitted. He does not recall his dose. His toes feeling better, but continue indomethacin when necessary and eventually start allopurinol to help prevent gout. Uric acid level was high at 9.3 Continue CIWA protocol, but change scheduled Ativan to when necessary, Precedex is now stopped. Continue Librium. The patient would benefit from additional multivitamin and thiamine replacement. In discussion with social work nurse, and looks like we have a placement at [facility] inpatient alcohol rehabilitation facility and we could have a bed as soon as tomorrow. If that's the case, I would hold the patient here until tomorrow, and taper Librium over a few days, and continue multivitamin and thiamine replacement. Again, I think allopurinol should be started sometime next week. I do have a C. difficile stool study pending.
[2018-08-30] MEDS ORDERED: LORazepam 2 MG/1 ML VIAL IVP SCH (15:00)
[2018-08-30] MEDS ORDERED: Sodium Chloride 0.9% 1,000 ML PRIMARY IV PRN (15:08)
[2018-08-30] MEDS: Diphenoxylate/Atropine 2.5/0.025 mg Tab PO SCH ×2 (15:54→21:22)
[2018-08-30] MEDS: LORazepam 2 MG/1 ML VIAL IVP PRN (15:54)
[2018-08-30] MEDS ORDERED: BuPROPion SR Tab 150 MG TAB PO ONE (16:23)
[2018-08-31] MEDS: LORazepam Inj(ETOH withdrawal) 2 MG/ML VIAL IVP PRN ×3 (00:41→11:33)
[2018-08-31] MEDS: ChlordiazePOXIDE Cap 25 MG CAPSULE PO SCH ×2 (04:28→13:07)
[2018-08-31] MEDS: Diphenoxylate/Atropine 2.5/0.025 mg Tab PO SCH ×4 (04:28→13:07)
[2018-08-31] MEDS: LORazepam 2 MG/1 ML VIAL IVP PRN (07:58)
[2018-08-31] MEDS: NICOTINE 21 MG /DAY PATCH TRANSDERM SCH (08:19)
--- NOTE | 2018-08-31 08:37 | DI ---
XR TOES MIN 2VW,08/30/2018 1:09 PM: Clinical History: Right great toe pain. Previous Exam: August 30, 2018 Findings: AP and lateral views right great toe are obtained, and demonstrate soft tissue swelling overlying the dorsum of the right foot. Bony alignment is anatomic and no fractures are seen. Impression: Soft tissue swelling without underlying fracture.
--- NOTE | 2018-08-31 08:39 | DI ---
XR FOOT 2VW,08/30/2018 1:09 PM: Clinical History: swollen right foot Previous Exam: None Findings: AP and lateral views of the right foot are obtained, and demonstrate anatomic alignment without fract ures. Surrounding soft tissues are unremarkable. Impression: Normal right foot.
[2018-08-31] MEDS ORDERED: BuPROPion SR Tab 150 MG TAB PO SCH (09:00)
[2018-08-31] MEDS ORDERED: Thiamine Tab 100 MG TAB PO SCH ×3 (09:00→19:51)
[2018-08-31] MEDS ORDERED: Multivitamin Tab 1 TAB PO SCH (09:00)
[2018-08-31 11:47] VITALS: BP 140/96; RESP 20; TEMP 98.6; O2SAT 91
--- NOTE | 2018-08-31 13:02 | DCSUMMARY ---
Hospitalization Summary Admit Date: 08/26/2018 Discharge Date: 08/31/18 Primary Diagnosis:: delirium tremens and alcohol withdrawal syndrome Hospital Course: This is a 38-year-old male who presented with alcohol withdrawal. He was admitted, placed on Ativan and CIWA protocol, but continued to worsen and develop delirium tremens. He had to be transferred to our ICU and was placed on Precedex drip. He hallucinated and had severe delirium tremens for upwards of 48 hours before we could transfer him back to the floor. His withdrawal has been prolonged, but he is significantly improved over the last 36 to 48 hours. He is now on Librium and I will change it to twice a day dosing and reduce the dose as well. The patient does have gouty arthropathy as well. His right great toe flared. He had no idea that he had gouty arthropathy. I think this is all related to alcohol. We did not get crystals during this hospital stay. X-Rays showed soft tissue swelling of the right great toe. No fractures. We placed him on indomethacin and his pain has gotten better but is still not completely resolved. I have prescribed allopurinol 100 mg by mouth daily for him to consider using as of 09/05/2018. We worked with his officer captain and [employer] to obtain a bed at [facility] inpatient rehabilitation and we got a bed. He will transferred there today. Terms of smoking, we used a tobacco cessation patch. 21 mg. Electrolytes were replaced during the hospital stay. Today, he feels much better. He does not have any chest pain. He does not have any nausea or vomiting. His diarrhea is better. He states that he has some shortness breath but his lungs are clear on examination and is been somewhat anxious about transferring to inpatient rehabilitation and I think this is probably related to anxiety more than anything. There are no signs or symptoms to suggest any infection, pneumonia, bronchitis, or any other issue. He is "ready to go to rehabilitation". I spoke with his officer captain. She stated that I could give a medication list to her and that [facility] would continue his medications and I also provided prescriptions for them. Assessment and Plan: 1. As per discharge assessments noted 2. Disposition: Patient is discharged to home. He will actually be going to [facility], for inpatient alcohol rehabilitation 3. Condition on discharge, stable and improved. 4. Diet: regular diet 5. Activities: resume normal activities 6. Follow-Up: 1. Primary care provider role will be provided there at [facility]. I called their provider and left a message. 2. 7. Medications at the Time of Discharge: Home Medications 3 Medication Instructions Recorded Confirmed Type Allopurinol 100 mg PO DAILY #30 tab 08/31/18 Rx Amlodipine Besylate [Norvasc] 10 mg PO DAILY #30 tab 08/31/18 Rx Diphenoxylate/Atropine [Lomotil 1 tab PO Q6H #30 tab 08/31/18 Rx 2.5/0.025 mg] Indomethacin [Indocin] 25 mg PO TID PRN #15 cap 08/31/18 Rx Multivitamin Tab [Thera Tab] 1 tab PO DAILY #30 tab 08/31/18 Rx Nicotine 21mg Patch [Nicoderm CQ 1 patch TRANSDERM DAILY #30 patch 08/31/18 Rx 21mg Patch] Thiamine HCl [Vitamin B-1] 100 mg PO DAILY #30 tab 08/31/18 Rx buPROPion SR Tab [Wellbutrin SR 150 mg PO DAILY #30 tab 08/31/18 Rx TAb] chlordiazePOXIDE HCl [Librium] 25 mg PO BID #12 cap 08/31/18 Rx 8. Time, care, counseling and coordination of care for this discharge is greater than 30 minutes. Exam - Vitals Vital Signs: Vital Signs Temperature 98.6 F Temperature Source Temporal Artery Scan Pulse Rate [Telemetry] 93 Pulse Rate [Pulse Oximeter] 129 Pulse Rate 113 Respiratory Rate 20 Blood Pressure [Right Arm] 140/96 Blood Pressure [Left Arm] 123/92 Blood Pressure 146/100 Pulse Ox 91 Oxygen Flow Rate 2 Oxygen Delivery Method Room Air Height 6 ft 2 in Weight 262 lb 12.8 oz - General General Appearance: No Acute Distress, Cooperative - Eye Eye Exam: POSITIVE: No Scleral Icterus - ENT ENT Exam: POSITIVE: Mucous Membranes Moist - Respiratory Respiratory Exam: POSITIVE: Clear to Auscultation - Bilaterally, Breathing Non Labored - Cardiovascular Cardiovascular Exam: POSITIVE: No Murmur, No Clicks, No Gallops, No Rubs, Tachycardia, No JVD - GI/Abdominal GI/Abdominal Exam: POSITIVE: Normal Bowel Sounds, Non Tender, Non Distended, Soft - Extremities Extremities Exam: POSITIVE: No Clubbing Present, No Edema Present, No Cyanosis Present, Joint Swelling (Decrease in erythema and joint swelling on right great toe.) - Neurological Neurological Exam: POSITIVE: Alert, Oriented x 3, No Facial Droop, Speech Intact / Clear, Moves All Extremities Equally Additional Neurological Exam Details: Withdrawal tremors have resolved. Data Peritnent Studies: 08/26/18 08/26/18 08/26/18 18:26 18:26 21:00 PT INR Sodium Potassium Chloride Carbon Dioxide Anion Gap BUN Creatinine Estimated GFR BUN/Creatinine Ratio Glucose Calculated Osmolality Calcium Magnesium Total Bilirubin AST ALT Alkaline Phosphatase Total Protein Albumin Globulin Albumin/Globulin Ratio Vitamin B12 Serum Folate TSH 2.15 Benzodiazepines Screen Positive H Serum Alcohol < 10 08/27/18 08/28/18 08/30/18 03:51 04:30 04:15 PT 11.0 INR 1.07 Sodium 138 Potassium 4.3 Chloride 108 Carbon Dioxide 20 L Anion Gap 10 BUN 3 L Creatinine 0.6 L Estimated GFR > 60 BUN/Creatinine Ratio 5.00 L Glucose 110 Calculated Osmolality 283.0 Calcium 8.9 Magnesium 1.6 Total Bilirubin 1.2 AST 95 H ALT 64 Alkaline Phosphatase 83 Total Protein 6.9 Albumin 3.5 Globulin 3.3 Albumin/Globulin Ratio 1.00 L Vitamin B12 819 Serum Folate 11.4 TSH Benzodiazepines Screen Serum Alcohol Procedures: [address] [facility]. [facility] [place] [address] PH: DD: [phone] FAX: [phone] ~DIAGNOSTIC IMAGING REPORT~ Patient: BILLIE RIVERS : 1980 Sex: M Age: 38 Exam Name: XR TOES MIN 2VW Exam Date: 08/30/18 Report # : [id number] CPT Code: 58302 EMR/MR #: [id number] Ordering: LAURENCE QUEZADA Admiting: LAURENCE QUEZADA DO Primary: NONE,NONE Attending: LAURENCE QUEZADA DO Signed XR TOES MIN 2VW,08/30/2018 1:09 PM: Clinical History: Right great toe pain. Previous Exam: August 30, 2018 Findings: AP and lateral views right great toe are obtained, and demonstrate soft tissue swelling overlying the dorsum of the right foot. Bony alignment is anatomic and no fractures are seen. Impression: Soft tissue swelling without underlying fracture. Dictated By: 08/31/18 0830 URI PUENTE MD. Signed By: 08/31/18 0837 URI PUENTE MD. [address] [facility] [place] [address] PH: DD: [phone] FAX: [phone] ~DIAGNOSTIC IMAGING REPORT~ Patient: BILLIE RIVERS : 1980 Sex: M Age: 38 Exam Name: XR FOOT 2VW Exam Date: 08/30/18 Report # : [id number] CPT Code: 17462 EMR/MR #: [id number] Ordering: LAURENCE QUEZADA Admiting: LAURENCE QUEZADA DO Primary: NONE,NONE Attending: LAURENCE QUEZADA DO Signed XR FOOT 2VW,08/30/2018 1:09 PM: Clinical History: swollen right foot Previous Exam: None Findings: AP and lateral views of the right foot are obtained, and demonstrate anatomic alignment without fractures. Surrounding soft tissues are unremarkable. Impression: Normal right foot. Dictated By: 08/31/18 0833 URI PUENTE MD. Signed By: 08/31/18 0839 URI PUENTE MD. [address] [facility]. [facility] [place] [id number] PH: DD: [phone] FAX: [phone] ~DIAGNOSTIC IMAGING REPORT~ Patient: BILLIE RIVERS : 1980 Sex: M Age: 38 Exam Name: XR CXR 1VW Exam Date: 08/26/18 Report # : [id number] CPT Code: 43001 EMR/MR #: [id number] Ordering: Bala Guzman Admiting: LAURENCE QUEZADA DO Primary: NONE,NONE Attending: LAURENCE QUEZADA DO Signed EXAM: XR Chest, 1 View CLINICAL HISTORY: ITS.REASON withdrawl etoh Physician Notes: Tech Comments: TECHNIQUE: Frontal view of the chest. COMPARISON: No relevant prior studies available. FINDINGS: Lordotic positioning and somewhat low lung volumes limits assessment. Lungs: Unremarkable. No consolidation. Pleural space: Unremarkable. No pneumothorax. Heart: Unremarkable. No cardiomegaly. Mediastinum: Unremarkable. Bones/joints: Unremarkable. IMPRESSION: No gross evidence for acute cardiopulmonary disease. Dictated By: Fabricio Sky MD Signed By: 08/26/181949 Fabricio Sky MD Patient Problems - Patient Problem List (1) Delirium tremens Current Visit: Yes Status: Resolved Code(s): F10.231 - Alcohol dependence with withdrawal delirium Category: Medical (2) Acute gouty arthropathy Current Visit: Yes Status: Acute Code(s): M10.9 - Gout, unspecified Category: Medical (3) Alcohol withdrawal syndrome Current Visit: Yes Status: Resolved Code(s): F10.239 - Alcohol dependence with withdrawal, unspecified Category: Medical (4) Alcohol abuse Current Visit: Yes Status: Chronic Code(s): F10.10 - Alcohol abuse, uncomplicated Category: Medical (5) Depression Current Visit: Yes Status: Acute Code(s): F32.9 - Major depressive disorder , single episode, unspecified Qualifiers: Depression Type: unspecified Qualified Code(s): F32.9 - Major depressive disorder, single episode, unspecified Category: Medical
== END 2018-08-31 12:18 | disposition home or self-care (01) | DRG 897 ==
LOC: ER 18:16 → MED/SURG 18:16 → ICU 08-27 05:30 → MED/SURG 08-30 12:25
PROVIDERS: ADMIT Family Medicine; ATTEND Family Medicine